=== PATIENT | male | born 2005 | race Hispanic/Latino ===

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

== ENCOUNTER 2024-12-02 19:01 | Emergency (ER) | payer OTHER ==
[~2024-12-02] VITALS: Ht 167.6 cm; Wt 83.0 kg
[~2024-12-02 19:01] MED LIST changes: +ADVIL200 M1 PO; +KETOROLAC TROME10 MG PO
[2024-12-02] MEDS ORDERED: DIPHTH,PERTUSS(ACELL),TET VAC 0.5 ML SYRINGE IM ONE (21:00)
[2024-12-02 21:55] VITALS: BP 128/62
== END 2024-12-02 22:05 | disposition home or self-care (01) ==
LOC: ED 19:01
DX: S61.210A Laceration without foreign body of right index finger without damage to nail, initial encounter (principal); W26.9XXA Contact with unspecified sharp object(s), initial encounter
CPT/HCPCS: 12001; 73140; 90471; 90715; 99283-25